=== PATIENT | male | born 1950 | race Caucasian/White ===

== ENCOUNTER 2017-07-12 16:16 | Inpatient (IN) | payer MEDICARE, MEDICAID ==
[2017-07-12] MEDS ORDERED: HYDROcodone/Acetaminophen 5/325 mg Tablet ONE (17:13)
[2017-07-12] MEDS ORDERED: HYDROcodone/Acetaminophen 10/325 mg Tablet PO PRN ×2 (18:00)
[2017-07-12] MEDS ORDERED: Dextrose 50% Abboject 50 ML SYRINGE SLOW IVP PRN (18:03)
[2017-07-12] MEDS ORDERED: Dextrose 5% in Water 1,000 ML IV PRN (18:03)
[2017-07-12 18:23] LABS: #Eosinphils 0.1 thou/uL (0.0-0.7); #Lymphocytes 1.7 thou/uL (1.20-3.40); #Monocytes 1.1 thou/uL (0.11-0.59); #Neutrophils 11.8 thou/uL (1.40-6.50); %Basophils 0.3 % (0.0-1.0); %Eosinophils 0.9 % (0.0-10.0); %Lymphocytes 11.8 % (21.0-51.0); %Monocytes 7.4 % (0.0-10.0); Hematocrit 39.8 % (42.0-52.0); Mean Platelet Volume 7.7 fL (7.4-10.4); Red Blood Cell (RBC) Count 4.31 mill/uL (4.70-6.10); White Blood Cell (WBC) Count 14.8 thou/uL (4.8-10.8)
[2017-07-12] MEDS ORDERED: traMADol HCl 50 MG TAB PO PRN ×2 (18:24)
--- NOTE | 2017-07-12 18:40 | RAD ---
LEFT KNEE THREE VIEWS HISTORY: Fall. Left knee injury. FINDINGS: Tricompartmental osteophytosis is present. No fluid distention of the joint capsule is evident. On the lateral view, there is cortical discontinuity of the distal femur having the appearance of a mi ldly displaced fracture. Osseous structures are demineralized. IMPRESSION: 1. Distal left femoral fracture. Please consider dedicated radiographic exam of the left femur. 2. Osteoporosis. POS: [facility]
[2017-07-12 18:49] LABS: ALT (SGPT) 27 U/L (8-55); AST (SGOT) 30 U/L (5-34); Alkaline Phosphatase 100 U/L (40-150); Anion Gap 15 mmol/L (10-20); BUN (Urea Nitrogen) 13 mg/dL (8.4-25.7); Bilirubin, Total 0.5 mg/dL (0.2-1.2); Calc. Creatinine Clearance 0 mL/min (70-130); Calcium 9.9 mg/dL (7.8-10.44); Carbon Dioxide 26 mmol/L (23-31); Chloride 98 mmol/L (98-107); Estimated GFR-MDRD Greater than 90; Globulin 4.3 g/dL (2.4-3.5); Protein, Total 8.3 g/dL (5.8-8.1)
--- NOTE | 2017-07-12 18:53 | RAD ---
CHEST ONE VIEW SEMIUPRPIGHT PORTABLE: History: 66-year-old male for pre-operative evaluation. FINDINGS: Heart size is within normal limits. The lungs are clear. No confluent pneumonia, overt edema, or ple ural effusion. Bilateral shoulder arthrosis. IMPRESSION: No acute intrathoracic disease. POS: [facility]
--- NOTE | 2017-07-12 18:58 | RAD ---
LEFT FEMUR TWO VIEWS: HISTORY: A 66-year-old male with left knee and leg pain following a fall out of bed on Wednesday. FINDINGS AND IMPRESSION: There is a comminuted, markedly displaced fracture involving the distal femoral metadiaphysis with c onsiderable displacement and resultant foreshortening and deformity. Diffuse bone demineralization. POS: [facility]
--- NOTE | 2017-07-12 20:17 | HP-2 ---
DATE OF ADMISSION: 07/12/2017 ATTENDING: Dr. Atkins. CODE STATUS: Patient is a FULL CODE. CHIEF COMPLAINT: Left leg pain status post fall. HISTORY OF PRESENT ILLNESS: This is a 66-year-old male that earlier this morning was going to try and sit up on the side of his bed. He is in a hospital bed, had a wheelchair at the side of him. When getting up to the side of bed, he fell over, fell to the side, does not recall hitting anything, but did say that he did have a wheelchair in the hospital bed thinking he might have hit his leg on the side of the hospital bed. The patient denied any chest pain, shortness of breath, denied any loss of consciousness, dizziness, just that he got up wrong and fell over. Denies any other complaints at this time. 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 He has had three strokes, status post aneurysm back in the 90s after the coil was put in. He has hypertension, skin cancer, and frontotemporal dementia and chronic obstructive pulmonary disease. PAST SURGICAL HISTORY: He has had a coil put in his brain. He has had a skin cancer removed on the left side of his scalp and has a skin cancer on his ears. DRUG ALLERGIES: No known drug allergies. MEDICATIONS: He is on donepezil 5 mg, labetalol 100 mg 2 times daily, enalapril 10 mg 2 times daily, multivitamin, diazepam 2 mg 2 times daily, simvastatin 40 mg, sertraline 50 mg. He also takes Symbicort 2 puffs in the morning and at night per the daughter, still awaiting her to bring that medication. FAMILY HISTORY: Insignificant. SOCIAL HISTORY: Patient was a 30+ year pack per day smoker, smoked since he was 17. He quit 3 years ago. Alcohol, denies any recent alcohol use, illicit drug. Denies any recent drug use. REVIEW OF SYSTEMS: All review of systems not listed in the HPI or otherwise negative at this time. PHYSICAL EXAMINATION: VITAL SIGNS: Blood pressure 153/72, pulse 85, respirations 20, temperature 98.4 on room air. Pain was rated at a 9 GENERAL: The patient in general is alert and oriented x3. HEENT: Atraumatic, normocephalic. Mouth seems a little dry at this time. NECK: Supple. No thyromegaly. No masses noted. LUNGS: Clear to auscultation. No wheezes or crackles noted. Symmetric chest expansion. No trauma noted. CARDIOVASCULAR: Regular rate and rhythm. No murmurs or gallops noted. ABDOMEN: Soft, nontender to palpation. No masses or distention noted. MUSCULOSKELETAL: The patient has both legs bent around 90 degrees bilaterally, says his knees have been in a frozen position for multiple years now. Left leg above the kneecap there is swelling and some redness noted. Not extensive bruising noted. It is tender to palpation. Neurovascular is intact. Pedal pulses and radial pulses palpated bilaterally. Patient does have good movement of his upper extremities bilaterally. NEUROLOGIC: Patient does have weakness from past strokes, does have trouble swallowing at times per daughter. LABORATORY DATA: White blood cell count of 14.8, hemoglobin of 13.3, hematocrit 39.8, platelet count of 278, neutrophil percent 79.6. A knee x-ray on the 2nd showed distal left femoral fracture and osteoporosis. A chest x-ray was done and a femur x-ray was done, reads are pending. On the femur x-ray, there was noted to be a definitive break of the distal femur. ASSESSMENT: 1. Status post mechanical fall. 2. Fractured distal femur. 3. Frontotemporal dementia. 4. History of hypertension. 5. History of brain bleeds and stroke. 6. History of COPD PLAN: We will consult Dr. Brown with the Orthopedic team and plan is to go to surgery tomorrow for repair. For now, we will put him on the fracture protocol for pain management. Continue to assess pain and just pain medications as needed. We will await all his home medications and restart home medications as needed. We will continue his beta gilberto, but hold his other blood pressure pills for now as blood pressure is mildly elevated. We will consult PT, OT and case management for assessments in the morning. The patient will be allowed to eat tonight and will be n.p.o. at midnight with plans for surgery tomorrow. Per family, patient does have a history of pressure ulcers as well. They are bringing in his boots to wear, we will apply those as needed. The patient was seen will be seen and assessed with Dr. Atkins. Patient was discussed with Lokesh Lorenzo. NANDO
[2017-07-12 20:42] LABS: PTT 23.3 SEC (22.9-36.1); Prothrombin Time 13.4 SEC (12.0-14.7)
[2017-07-12] MEDS: Acetaminophen 500 MG TAB PO SCH ×3 (22:56→23:15)
[2017-07-12] MEDS: Ketorolac Tromethamine 30 MG/ML VIAL IVP SCH ×2 (22:56→23:12)
[2017-07-12] MEDS: Sodium Chloride 0.9% 1,000 ML IV SCH (23:10)
[2017-07-12] MEDS: Labetalol HCl 100 MG TAB PO SCH (23:11)
[2017-07-12] MEDS: Diazepam 2 MG TAB PO SCH (23:12)
[2017-07-13 00:54] VITALS: BMI 32.2
[2017-07-13 05:34] LABS: #Eosinphils 0.2 thou/uL (0.0-0.7); #Lymphocytes 1.7 thou/uL (1.20-3.40); #Monocytes 0.9 thou/uL (0.11-0.59); %Basophils 0.2 % (0.0-1.0); %Eosinophils 1.7 % (0.0-10.0); %Lymphocytes 15.9 % (21.0-51.0); %Monocytes 8.3 % (0.0-10.0); Hematocrit 33.7 % (42.0-52.0); Mean Platelet Volume 7.8 fL (7.4-10.4); Red Blood Cell (RBC) Count 3.63 mill/uL (4.70-6.10); White Blood Cell (WBC) Count 10.8 thou/uL (4.8-10.8)
[2017-07-13] MEDS: Sodium Chloride 0.9% 1,000 ML IV SCH ×2 (05:41→14:21)
[2017-07-13 06:03] LABS: Anion Gap 11 mmol/L (10-20); BUN (Urea Nitrogen) 16 mg/dL (8.4-25.7); Calc. Creatinine Clearance 137 mL/min (70-130); Calcium 9.1 mg/dL (7.8-10.44); Carbon Dioxide 24 mmol/L (23-31); Chloride 105 mmol/L (98-107); Estimated GFR-MDRD Greater than 90; Magnesium 1.7 mg/dL (1.6-2.6); Phosphorus 3.8 mg/dL (2.3-4.7)
[2017-07-13] MEDS: Ketorolac Tromethamine 30 MG/ML VIAL IVP SCH ×3 (06:22→18:08)
[2017-07-13] MEDS: Acetaminophen 500 MG TAB PO SCH ×3 (06:22→18:08)
[2017-07-13] MEDS ORDERED: ADMIXTURE FEE IVPB SCH (08:00)
[2017-07-13] MEDS ORDERED: SODIUM CHLORIDE IVPB SCH (08:00)
[2017-07-13] MEDS ORDERED: MAGNESIUM SULFATE IVPB SCH (08:00)
[2017-07-13] MEDS: Diazepam 2 MG TAB PO SCH ×3 (08:19→20:08)
[2017-07-13] MEDS: Labetalol HCl 100 MG TAB PO SCH ×2 (08:23→20:08)
--- NOTE | 2017-07-13 08:35 | CON ---
DATE OF CONSULTATION: 07/12/2017 REQUESTING PHYSICIAN: Dr. Judd Atkins. CHIEF COMPLAINT: Left distal femur fracture. BRIEF HISTORY OF PRESENT ILLNESS: Patient is a 66-year-old gentleman, who on the morning of , was trying to sit up at the side of his bed when he fell, sustaining trauma to the left lower l eg. Upon arrival at [place], his principal complaint was that of left leg pain. X-rays were obt ained and demonstrated a supracondylar distal femur fracture with displacement. Trauma has now sche duled for admission of patient. Orthopedic consultation requested. Of note, the patient has had at least three strokes since the . He is a non-ambulator. He is cared for at home by his w ith some hospital bed, Christel lift, and assisted devices. The patient does have extensive flexion co ntractures at both knees with contractures at approximately 90 degrees. PAST MEDICAL HISTORY: Remarkable for history of strokes as well as brain aneurysm in 1996. He also has a history of some hypertension, some dementia, and COPD. PAST SURGICAL HISTORY: Includes vascular coil for his aneurysm as well as excision of skin cancer f rom his forehead. MEDICATIONS: Labetalol, donepezil, enalapril, diazepam, sertraline, and an inhaler. ALLERGIES: None known. FAMILY HISTORY: Noncontributory. SOCIAL HISTORY: The patient does have a past history of smoking. He quit 3 years ago. Does not re port recreational drug use. REVIEW OF SYSTEMS: No recent fevers, chills, or sweats. He does have some chronic shortness of kristen ath, but denies chest pain. Distally, he does have some diminished sensation and the rigid flexion contractures at the knees, as mentioned in the history of present illness. PHYSICAL EXAMINATION: VITAL SIGNS: Blood pressure 153/72, heart rate of 85, respiratory rate of 20. HEENT: Atraumatic, normocephalic except for the well-healed scars from his prior skin cancer surger ies. HEART: Shows a regular rate and rhythm without murmur. LUNGS: Clear to auscultation. I do not appreciate any wheezing on exam. CHEST WALL: Nontender. ABDOMEN: Soft and nontender. EXTREMITIES: Remarkable for bilateral upper extremities with no deformity of shoulder, elbow, wrist , or hand. Bilateral lower extremities are most remarkable for the hips and knees, both held in a f lexed posture. His right unaffected leg is remarkable for a 90- degree flexion contracture that is quite rigid. The left lower extremity remarkable for swelling at the distal thigh and a hemarthrosi s as well. This leg is also held at 90 degrees and was not manipulated due to the acute nature of h is injury. He has 2+ dorsalis pedis pulse bilaterally. He does have some diminished sensation and very diminished motor function of the lower extremities. LABORATORY: White count 14.8, hematocrit of 39.8, and 278,000 platelets. X-rays, a pertinent ortho pedic film, include knee and femur x-ray that shows a supracondylar distal femur fracture. ASSESSMENT: A 66-year-old gentleman status post mechanical fall sustaining distal femur fracture wi th history of stroke and brain bleed as well as some hypertension. PLAN: Today, I did briefly discuss with the patient the nature of his injury; however, due to his d ementia, I am not certain that the patient is able to process and make his own decision regarding ca re. I would like to speak with the patient's regarding treatment options, which include nonsur gical management with a brace versus IM nailing versus open reduction internal fixation with plate f or comfort. The patient will be admitted to the Trauma Service. He will be kept n.p.o. after [facility] and we will attempt to contact his prior to any surgical intervention to discuss with her, her thoughts and desires, regarding further care for this fracture.
[2017-07-13] MEDS ORDERED: FLU VACC TS2017-18 (>65YR) 0.5 ML SYRINGE IM ONE (09:00)
[2017-07-13] MEDS ORDERED: Mometasone/Formoterol 120 PUFF INHALER INH SCH (11:45)
--- NOTE | 2017-07-13 11:56 | PRG-2 ---
DATE OF SERVICE: 07/13/2017 DATE OF ADMISSION: 07/12/2017 SUBJECTIVE: Mr. Farley is a 66-year-old male that is status post mechanical fall, found to have distal femoral metadiaphysis fracture of his left femur. Today, patient was resting in bed, was answering questions and reported pain was being adequately controlled at this time, reported being able to tolerate diet. No other concerns or complaints at this time. OBJECTIVE: VITAL SIGNS: Temperature 98.3, pulse 74, respirations 18, O2 sat 92% on room air, blood pressure was 147/78. GENERAL: He is alert and oriented. He is resting in bed, in no acute distress. HEENT: Atraumatic, normocephalic. HEART: Regular rate and rhythm without murmur. LUNGS: Symmetric chest expansion. Symmetric chest rise. Lungs are audible, kind of crackles, wheezes heard. ABDOMEN: Soft, nontender, no masses or distention noted. CARDIOVASCULAR: Regular rate and rhythm. No murmurs or gallops. EXTREMITIES: Bilateral upper extremities with no deformity of shoulder, elbow, wrist or hand. Bilateral lower extremities are remarkable for the hips and knees. He has like frozen knees at 90-degree flexion. There is swelling in the left lower extremity, he is then placed in a brace at this time. NEUROLOGIC: No new neuro focal deficits noted. LABORATORY DATA: White blood cell count 10.8, hemoglobin 11.4, hematocrit 33.7 , platelet counts 223. Chemistry: Sodium 136, potassium 3.5, chloride 105, CO2 of 24, BUN of 16, creatinine 0.17, glucose 113, calcium 9.1, phosphorus 3.8 , and magnesium 1.7. IMAGING: On 07/12/2017, knee x-ray shows: 1. Distal left femoral fracture. 2. Osteoporosis. 3. Femur x-ray of the left femur, there is a comminuted markedly displaced fracture involving the distal femoral metadiaphysis with considerable displacement and resultant foreshortening and deformity, diffuse bone demineralization and then chest x-ray yesterday on 07/12/2017 showed no acute intrathoracic disease. ASSESSMENT: 1. Status post mechanical fall. 2. Fractured distal femur. 3. Frontotemporal dementia. 4. History of hypertension. 5. History of brain bleed and stroke. PLAN: From Orthopedic Surgery is to do nonoperative treatment for now. We will continue with current pain management. Pain is being well controlled. We will have him be seen by PT/OT. We will restart home medications as needed. Patient is on regular diet, tolerating food. Continue diet and continue with current plan. We will reassess labs as needed and continue to monitor the patient. The patient was seen and assessed with Dr. Atkins. The patient's plan of care was discussed with Dr. Atkins. Attending: Dr. Judd Atkins to co-sign this note. HALD
[2017-07-13] MEDS: Mometasone/Formoterol 120 PUFF INHALER INH SCH (18:20)
[2017-07-14] MEDS: Ketorolac Tromethamine 30 MG/ML VIAL IVP SCH ×3 (00:01→13:03)
[2017-07-14] MEDS: Acetaminophen 500 MG TAB PO SCH ×4 (00:01→14:45)
[2017-07-14] MEDS: Sodium Chloride 0.9% 1,000 ML IV SCH ×2 (00:39→10:12)
[2017-07-14] MEDS: Mometasone/Formoterol 120 PUFF INHALER INH SCH (06:21)
[2017-07-14] MEDS ORDERED: [UNRECOGNIZED DRUG - OTHER] PO SCH (09:00)
[2017-07-14] MEDS ORDERED: Non-Formulary Item 1 EACH (Symbicort 2 PUFF) INH SCH (09:00)
[2017-07-14] MEDS ORDERED: SERTRALINE HCL PO SCH (09:00)
[2017-07-14] MEDS ORDERED: Labetalol HCl 100 MG TAB PO SCH ×2 (09:00)
[2017-07-14] MEDS ORDERED: Diazepam 2 MG TAB PO SCH ×2 (09:00)
[2017-07-14] MEDS ORDERED: Multivit, Therapeutic 1 TAB PO SCH (09:00)
[2017-07-14 12:05] VITALS: BP 178/75; TEMP 97.4
[2017-07-14] MEDS ORDERED: Mometasone/Formoterol 120 PUFF INHALER INH SCH (18:30)
--- NOTE | 2017-07-14 18:53 | DIS ---
DATE OF ADMISSION: 07/12/2017 ADMISSION DIAGNOSES: 1. Status post mechanical fall. 2. Fracture distal femur. 3. History of severe dementia. 4. History of hypertension. 5. History of brain bleeds and stroke. 6. History of chronic obstructive pulmonary disease. CONSULTATIONS: Orthopedics, Dr. Brown. PROCEDURES: None. SUMMARY: The patient is a 66-year-old man, who reportedly fell while trying to move from his bed to his wheelchair, fell and had sudden pain to his left knee. The patient was brought to [facility] Emergency Department, evaluated, examined, and noted to have the above injuries. The patient unde rwent evaluation by Orthopedics and due to the patient's dementia, a preexisting contracture of that lower extremity and his comorbidities, it was decided with the family that he be treated nonoperati vely. The patient was fitted with a locked hinged knee brace and was able to be discharged back [facility] with Ultram for pain. The patient will follow up with Orthopedics in 2-3 weeks or sooner as wanda jaramillo
[2017-07-14] MEDS ORDERED: Donepezil HCl 5 MG TAB PO SCH (21:00)
[2017-07-14] MEDS ORDERED: Atorvastatin Calcium 20 MG TAB PO SCH (21:00)
[2017-07-14] MEDS ORDERED: Simvastatin 40 MG TAB PO SCH (21:00)
== END 2017-07-14 16:52 | disposition home or self-care (01) | DRG 534 ==
LOC: ERS 16:16 → SURG B 20:21
PROVIDERS: ADMIT Surgery; ATTEND Surgery
DX: S72.492A Other fracture of lower end of left femur, initial encounter for closed fracture (principal); F03.90 Unspecified dementia, unspecified severity, without behavioral disturbance, psychotic disturbance, mood disturbance, and anxiety; J44.9 Chronic obstructive pulmonary disease, unspecified; I10 Essential (primary) hypertension; W18.30XA Fall on same level, unspecified, initial encounter; Y92.013 Bedroom of single-family (private) house as the place of occurrence of the external cause; Z95.9 Presence of cardiac and vascular implant and graft, unspecified; Z86.73 Personal history of transient ischemic attack (TIA), and cerebral infarction without residual deficits; C44.201 Unspecified malignant neoplasm of skin of unspecified ear and external auricular canal; Z87.891 Personal history of nicotine dependence; M81.0 Age-related osteoporosis without current pathological fracture; Z99.3 Dependence on wheelchair; M24.562 Contracture, left knee; M24.561 Contracture, right knee; F32.9 Major depressive disorder, single episode, unspecified
CPT/HCPCS: 36415; 71010; 80048; 80053; 83735; 84100; 85025; 85610; 85730; 86850; 86900; 86901; 90471; 90682; 93005; G0008; G8978-GP-CM; G8979-GP-CL; G8987-GO-CM; G8988-GO-CK; G8996-GN-CL; G8997-GN-CK; J0360; J1885; J3475; J7050; L1832; Q2036

== ENCOUNTER 2017-10-14 14:31 | Emergency (ER) | payer MEDICARE, MEDICAID ==
--- NOTE | 2017-10-14 16:56 | RAD ---
PORTABLE CHEST ONE VIEW 10/14/17 at 4:16 p.m. HISTORY: Cough. FINDINGS: The heart size is normal. The lungs are expanded without focal areas of consolidation, pneumothorax o r pleural effusions. There are degenerative changes in the acromioclavicular joints. IMPRESSION: No radiographic evidence of acute cardiopulmonary process. POS: [facility]
[2017-10-14 17:05] LABS: #Eosinphils 0.4 thou/uL (0.0-0.7); #Lymphocytes 1.4 thou/uL (1.20-3.40); #Monocytes 0.8 thou/uL (0.11-0.59); #Neutrophils 6.4 thou/uL (1.40-6.50); %Basophils 0.2 % (0.0-1.0); %Eosinophils 4.5 % (0.0-10.0); %Lymphocytes 15.9 % (21.0-51.0); %Monocytes 8.8 % (0.0-10.0); %Neutrophils 70.5 % (42.0-75.0); Hemoglobin 14.4 g/dL (14.0-18.0); Mean Corpuscular HGB CONC 33.1 g/dL (32.0-36.0); Mean Corpuscular Hemoglobin 29.7 pg (27.0-31.0); Mean Corpuscular Volume 89.8 fl (80.0-94.0); Platelet Count 313 thou/uL (130-400); RBC Distribution Width 13.6 % (11.5-14.5); Red Blood Cell (RBC) Count 4.82 mill/uL (4.70-6.10); White Blood Cell (WBC) Count 9.1 thou/uL (4.8-10.8)
--- NOTE | 2017-10-14 17:12 | RAD ---
FOUR VIEWS OF THE LEFT KNEE 10/14/17 COMPARISON: 07/12/17 HISTORY: Knee pain, fracture in July 2017. FINDINGS: Four views of the left knee obtained portably provided. There is an obliquely oriented distal left femoral shaft fracture, as seen on the prior exam. The fra cture line is still well seen within an oblique orientation on frontal imaging. The distal fracture f ragment is displaced proximally and medially, similar when compared to prior imaging. The fracture is not fully imaged on this exam. There has been interval development of significant callus formation, suggesting a degree of interval healing. The bones are demineralized. No evidence for knee dislocati on. On image 1 and 2 of 4, the distal aspect of the proximal fracture fragment extends to the region of the subcutaneous fat and/or skin. This may represent an open fracture. IMPRESSION: Obliquely oriented displaced distal left femur fracture demonstrating similar displacement and impact ion when compared to 07/12/17. Degree of interval callus formation noted. Dedicated left femur imaging would be required to best assess this fracture. The distal most aspect of the proximal fracture frag ment approaches the skin surface. Clinical correlation is required for possibility of an open fractur e. Orthopedic consultation advised. POS: [facility]
[2017-10-14 17:28] LABS: ALT (SGPT) 21 U/L (8-55); AST (SGOT) 26 U/L (5-34); Albumin 3.9 g/dL (3.4-4.8); Alkaline Phosphatase 144 U/L (40-150); Anion Gap 13 mmol/L (10-20); BUN (Urea Nitrogen) 9 mg/dL (8.4-25.7); Bilirubin, Total 0.3 mg/dL (0.2-1.2); Calc. Creatinine Clearance 0 mL/min (70-130); Calcium 10.1 mg/dL (7.8-10.44); Carbon Dioxide 27 mmol/L (23-31); Chloride 100 mmol/L (98-107); Estimated GFR-MDRD Greater than 90; Globulin 4.2 g/dL (2.4-3.5); Glucose 103 mg/dL (80-115); Potassium 4.2 mmol/L (3.5-5.1); Protein, Total 8.1 g/dL (5.8-8.1); Sodium 136 mmol/L (136-145)
--- NOTE | 2017-10-14 18:59 | RAD ---
LEFT FEMUR TWO VIEWS 10/14/17 HISTORY: Bone protruding from the left knee since fracture in July 2017. COMPARISON: 07/12/17. FINDINGS: Redemonstration of a distal femur fracture. There is evidence of callus formation suggesting healing. However, lucency does still persists suggesting incomplete healing. There is persistent mild displac ement at the fracture site. IMPRESSION: Incompletely healed distal femur fracture with persistent displacement. POS: [facility]
== END 2017-10-14 18:35 | disposition home or self-care (01) ==
LOC: ERS 14:31
DX: M79.652 Pain in left thigh (principal); I10 Essential (primary) hypertension; F32.9 Major depressive disorder, single episode, unspecified; Z86.73 Personal history of transient ischemic attack (TIA), and cerebral infarction without residual deficits; Z87.891 Personal history of nicotine dependence
CPT/HCPCS: 36415; 71045; 80053; 83605; 85025; 85652; 86140

== ENCOUNTER 2017-10-28 10:23 | Observation (INO) | payer MEDICARE, MEDICAID ==
[2017-10-28] MEDS ORDERED: Albuterol Sulfate 1.25 MG/3 ML NEB ONE (11:36)
[2017-10-28] MEDS ORDERED: Fentanyl 100 MCG/2 ML VIAL ONE (12:31)
[2017-10-28] MEDS ORDERED: Midazolam HCl 2 mg/2 ml Vial ONE (12:31)
[2017-10-28] MEDS ORDERED: Milk Of Magnesia 30 ML UDCUP PO PRN (13:39)
[2017-10-28] MEDS ORDERED: Acetaminophen 325 MG TAB PO PRN (13:39)
[2017-10-28] MEDS ORDERED: HYDROcodone/Acetaminophen 5/325 mg Tablet PO PRN (13:39)
[2017-10-28] MEDS ORDERED: Ondansetron HCl/PF 4 MG/2 ML Vial IVP PRN (13:39)
[2017-10-28] MEDS ORDERED: Ondansetron ODT 4 MG TAB PO PRN (13:39)
[2017-10-28] MEDS ORDERED: Acetaminophen 500 MG TAB PO PRN (13:44)
--- NOTE | 2017-10-28 14:30 | OP ---
DATE OF PROCEDURE: 10/28/2017 OPERATION: Distal femoral osteotomy. 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 COMPLICATIONS: None. ESTIMATED BLOOD LOSS: Minimal. SURGEON: Antonio Tinajero M.D. SCHOOL PHYSICAL THERAPIST: Atilio Mariano. IMPLANTS: None. INDICATIONS FOR PROCEDURE: Mr. Farley is an elderly gentleman who is nonambulatory. He was treated nonoperatively for a distal femur fracture. Unfortunately, he healed in a malunited position and henderson s developed a painful prominent spike of distal femoral bone which has caused an erosive wound over h is skin. He has been indicated for osteotomy of this bone to remove the prominence and relieve press ure to allow healing. Risks have been reviewed in detail. He has elected to proceed with the operat ion. DESCRIPTION OF PROCEDURE: The patient was identified in the preoperative holding area. His correct extremity was marked. He was carried to the operating room. He was positioned supine. Spinal anest hetic was placed. At this point, we prepped and draped the right lower extremity. We then applied a tourniquet to the leg. We then made an incision just anterior to the patient's prominent bone. We aborted his wound. We dissected down through the subcutaneous tissue to the fascia level which was o pened. We exposed the underlying bony spike and fragments. At this point, we used a rongeur as well as osteotomies to remove the prominent distal femoral bone creating an osteotomy. We smoothed the b ed of tissue. We thoroughly irrigated with copious lavage. We then closed the fascia, subcutaneous tissue and skin. At this point, a sterile dressing was applied. The patient was taken to the [facility] room in good condition without complication.
[2017-10-28] MEDS: Sodium Chloride 0.9% 1,000 ML IV SCH (15:40)
[2017-10-28] MEDS: CEFAZOLIN/Water 2 GM/20 ML SYRINGE SLOW IVP SCH ×2 (15:40→21:16)
[2017-10-28 18:34] VITALS: BMI 35.4
[2017-10-28] MEDS: Mometasone/Formoterol 120 PUFF INHALER INH SCH (19:04)
--- NOTE | 2017-10-28 19:57 | EKG ---
Test Reason : PREOP Blood Pressure : / mmHG Vent. Rate : 060 BPM Atrial Rate : 060 BPM P-R Int : 172 ms QRS Dur : 082 ms QT Int : 418 ms P-R-T Axes : 093 064 070 degrees QTc Int : 418 ms Normal sinus rhythm Normal ECG When compared with ECG of 12-JUL-2017 18:31, Nonspecific T wave abnormality no longer evident in Inferior leads Confirmed by JARAD TRACY, . SVirginie (4) on 10/28/2017 7:57:28 PM Referred By: LISA Confirmed By:DR. Yan ABRAHAM MD
[2017-10-28] MEDS: Labetalol 100 MG TAB PO SCH (20:20)
[2017-10-28] MEDS: Diazepam 2 MG TAB PO SCH (20:20)
[2017-10-28] MEDS: HYDROcodone/Acetaminophen 5/325 mg Tablet PO PRN (20:21)
[2017-10-28] MEDS ORDERED: Donepezil HCl 5 MG TAB PO SCH (21:00)
[2017-10-28] MEDS ORDERED: Atorvastatin Calcium 20 MG TAB PO SCH (21:00)
[2017-10-29] MEDS: HYDROcodone/Acetaminophen 5/325 mg Tablet PO PRN (06:14)
[2017-10-29] MEDS: Mometasone/Formoterol 120 PUFF INHALER INH SCH (06:58)
[2017-10-29] MEDS: Labetalol 100 MG TAB PO SCH (08:23)
[2017-10-29] MEDS: Diazepam 2 MG TAB PO SCH (08:23)
[2017-10-29] MEDS ORDERED: Multivit, Therapeutic 1 TAB PO SCH (09:00)
[2017-10-29 11:57] VITALS: BP 125/71; TEMP 98.7
[2017-10-29] MEDS: Sodium Chloride 0.9% 1,000 ML IV SCH (12:07)
== END 2017-10-29 14:05 | disposition home or self-care (01) ==
LOC: SDC 10:23 → SURG A 13:59
PROVIDERS: ADMIT Orthopaedic Surgery; ATTEND Orthopaedic Surgery
PROC: 0QS604Z Reposition Right Upper Femur with Internal Fixation Device, Open Approach (ICD-10-PCS; principal; 2017-10-28)
DX: S72.401P Unspecified fracture of lower end of right femur, subsequent encounter for closed fracture with malunion (principal); I10 Essential (primary) hypertension; E78.5 Hyperlipidemia, unspecified; M06.9 Rheumatoid arthritis, unspecified; F41.9 Anxiety disorder, unspecified; J44.9 Chronic obstructive pulmonary disease, unspecified; Z79.899 Other long term (current) drug therapy; Z98.890 Other specified postprocedural states; Z85.828 Personal history of other malignant neoplasm of skin; Z86.73 Personal history of transient ischemic attack (TIA), and cerebral infarction without residual deficits; Z87.891 Personal history of nicotine dependence
CPT/HCPCS: 27470; 93005; 94640 ×2; 96361 ×2; 96374; 96376; 97139 ×2; G0378; 93010; J2250; J3010